=== PATIENT | male | born 1980 | race Caucasian/White ===

== ENCOUNTER 2023-07-21 01:49 | Inpatient (IN) | payer MEDICAID ==
[~2023-07-21] VITALS: Ht 177.8 cm; Wt 68.0 kg
[2023-07-21 01:55] VITALS: BP 108/73; PULSE 103; RESP 18; TEMP 98.5; O2SAT 98
[2023-07-21] MEDS ORDERED: VANCOMYCIN 1,000 MG in DEXTROSE 5% 250 ML IV ONE (02:50)
[2023-07-21] MEDS ORDERED: ONDANSETRON 4 MG/2 ML VIAL IVP ONE (02:50)
[2023-07-21] MEDS ORDERED: MORPHINE SULFATE 4 MG/ML SYR IVP ONE (02:50)
[2023-07-21] MEDS ORDERED: VANCOMYCIN 1,000 MG VIAL ONE (03:29)
[2023-07-21 03:43] LABS: BASOPHILS % (AUTO) 0.4 % (0.0-2.0); EOSINOPHILS % (AUTO) 0.3 % (0.0-4.0); HEMATOCRIT 36.3 % (36-52); HEMOGLOBIN 12.2 g/dL (12.0-18.0); LYMPHOCYTES # (AUTO) 1.7 K/uL (2.0-11.5); LYMPHOCYTES % (AUTO) 13.2 % (20.5-51.1); MEAN CORPUSCULAR HEMOGLOBIN 30 pg (27-31); MEAN CORPUSCULAR HGB CONC 34 g/dL (33-37); MEAN CORPUSCULAR VOLUME 88.4 fL (80-94); MONOCYTES # (AUTO) 1.3 K/uL (0.8-1.0); MONOCYTES % (AUTO) 10.2 % (1.7-9.3); NEUTROPHILS # (AUTO) 9.9 K/uL (1.8-7.7); NEUTROPHILS % (AUTO) 75.9 % (42.2-75.2); PLATELET COUNT (AUTO) 297 K/uL (140-450); RED BLOOD CELL COUNT(AUTO) 4.11 MIL/uL (4.20-6.10); RED CELL DISTRIBUTION WIDTH 13.6 % (11.6-13.7)
[2023-07-21 04:03] LABS: CALCIUM 8.5 mg/dL (8.5-10.1); CARBON DIOXIDE 27.4 mmol/L (21-32); POTASSIUM 3.4 mmol/L (3.5-5.1)
[2023-07-21 04:05] LABS: INR 1.09 (0.8-1.2); PARTIAL THROMBOPLASTIN TIME 30.1 secs (22-35.6); PROTHROMBIN TIME 11.4 secs (10.8-13.4)
[2023-07-21 04:09] LABS: ALBUMIN 3.2 g/dL (3.4-5.0); TOTAL BILIRUBIN 1.2 mg/dL (0.0-1.0); TOTAL PROTEIN, SERUM 7.1 g/dL (6.4-8.2)
[2023-07-21] MEDS ORDERED: POTASSIUM CHLORIDE 10 MEQ TABER PO PRN (05:40)
[2023-07-21] MEDS ORDERED: ONDANSETRON 4 MG/2 ML VIAL IM/IVP PRN (05:40)
[2023-07-21] MEDS ORDERED: ACETAMINOPHEN 325 MG TAB PO PRN (05:40)
[2023-07-21] MEDS ORDERED: ZOLPIDEM 5 MG TAB PO PRN (05:40)
[2023-07-21] MEDS ORDERED: guaiFENesin DM 200/20 MG-10 ML 10 ML UDC PO PRN (05:40)
[2023-07-21] MEDS: NACL 0.9% 1,000 ML IV SCH ×2 (05:40→17:30)
[2023-07-21] MEDS ORDERED: DOCUSATE SODIUM 100 MG GELCAP PO PRN (05:40)
[2023-07-21] MEDS ORDERED: PIPERACILLIN/TAZOBACTAM 3.375 GM VIAL IV ONE ×2 (08:55→12:21)
[2023-07-21] MEDS: PIPERACILLIN/TAZOBACTAM 3.375 GM in DEXTROSE 5% 50 ML IV SCH ×4 (08:57→23:55)
[2023-07-21] MEDS: PANTOPRAZOLE 40 MG TABEC PO SCH (08:57)
[2023-07-21 13:30] VITALS: RESP 16; O2SAT 98
[2023-07-21 16:00] VITALS: BP 111/71; PULSE 101; RESP 20; TEMP 98.5; O2SAT 100
[2023-07-21] MEDS: HYDROcodone/APAP 7.5/325 MG 1 TAB PO PRN (17:39)
[2023-07-21 20:00] VITALS: BP 110/70; PULSE 97; RESP 17; TEMP 98.4; O2SAT 98
[2023-07-22] MEDS: NACL 0.9% 1,000 ML IV SCH ×4 (00:12→22:43)
[2023-07-22 04:00] VITALS: BP 136/79; PULSE 92; RESP 18; TEMP 98; O2SAT 98
[2023-07-22] MEDS: PIPERACILLIN/TAZOBACTAM 3.375 GM in DEXTROSE 5% 50 ML IV SCH ×4 (05:31→23:49)
[2023-07-22] MEDS: HYDROcodone/APAP 7.5/325 MG 1 TAB PO PRN ×2 (06:00→15:38)
[2023-07-22 07:26] LABS: BASOPHILS % (AUTO) 0.2 % (0.0-2.0); EOSINOPHILS # (AUTO) 0.1 K/uL (0-0.4); EOSINOPHILS % (AUTO) 0.8 % (0.0-4.0); HEMATOCRIT 38.6 % (36-52); HEMOGLOBIN 12.9 g/dL (12.0-18.0); LYMPHOCYTES # (AUTO) 1.9 K/uL (2.0-11.5); LYMPHOCYTES % (AUTO) 14.3 % (20.5-51.1); MEAN CORPUSCULAR HEMOGLOBIN 30 pg (27-31); MEAN CORPUSCULAR HGB CONC 33 g/dL (33-37); MEAN CORPUSCULAR VOLUME 89.6 fL (80-94); MONOCYTES # (AUTO) 0.9 K/uL (0.8-1.0); MONOCYTES % (AUTO) 7.1 % (1.7-9.3); NEUTROPHILS % (AUTO) 77.6 % (42.2-75.2); PLATELET COUNT (AUTO) 344 K/uL (140-450); RED BLOOD CELL COUNT(AUTO) 4.31 MIL/uL (4.20-6.10); RED CELL DISTRIBUTION WIDTH 13.5 % (11.6-13.7); WHITE BLOOD COUNT (AUTO) 12.9 K/uL (4.8-10.8)
[2023-07-22 08:00] VITALS: BP 108/68; PULSE 63; RESP 18; TEMP 97.6; O2SAT 97
[2023-07-22 08:09] LABS: ALBUMIN 2.9 g/dL (3.4-5.0); ANION GAP 12.6 (8-16); CALCIUM 8.7 mg/dL (8.5-10.1); CARBON DIOXIDE 24.4 mmol/L (21-32); CREATININE 0.9 mg/dL (0.6-1.3); TOTAL BILIRUBIN 0.7 mg/dL (0.0-1.0); TOTAL PROTEIN, SERUM 7.2 g/dL (6.4-8.2)
[2023-07-22 08:50] VITALS: RESP 18; O2SAT 99
[2023-07-22] MEDS: PANTOPRAZOLE 40 MG TABEC PO SCH (09:54)
[2023-07-22 16:00] VITALS: BP 103/65; PULSE 78; RESP 18; TEMP 99.7; O2SAT 97
[2023-07-22 20:00] VITALS: BP 98/48; PULSE 84; RESP 18; TEMP 97; O2SAT 98
[2023-07-23] MEDS: HYDROcodone/APAP 7.5/325 MG 1 TAB PO PRN ×2 (02:06→21:31)
[2023-07-23 04:00] VITALS: BP 122/74; PULSE 73; RESP 18; TEMP 97.3; O2SAT 97
[2023-07-23] MEDS: PIPERACILLIN/TAZOBACTAM 3.375 GM in DEXTROSE 5% 50 ML IV SCH ×3 (05:17→17:04)
[2023-07-23 06:43] LABS: BASOPHILS # (AUTO) 0.1 K/uL (0.00-0.22); BASOPHILS % (AUTO) 0.5 % (0.0-2.0); EOSINOPHILS # (AUTO) 0.2 K/uL (0-0.4); EOSINOPHILS % (AUTO) 1.7 % (0.0-4.0); HEMATOCRIT 39.9 % (36-52); HEMOGLOBIN 13.1 g/dL (12.0-18.0); LYMPHOCYTES # (AUTO) 1.8 K/uL (2.0-11.5); LYMPHOCYTES % (AUTO) 18.6 % (20.5-51.1); MEAN CORPUSCULAR HEMOGLOBIN 30 pg (27-31); MEAN CORPUSCULAR HGB CONC 33 g/dL (33-37); MEAN CORPUSCULAR VOLUME 89.9 fL (80-94); MONOCYTES # (AUTO) 0.6 K/uL (0.8-1.0); MONOCYTES % (AUTO) 6.8 % (1.7-9.3); NEUTROPHILS # (AUTO) 6.9 K/uL (1.8-7.7); NEUTROPHILS % (AUTO) 72.4 % (42.2-75.2); PLATELET COUNT (AUTO) 383 K/uL (140-450); RED BLOOD CELL COUNT(AUTO) 4.43 MIL/uL (4.20-6.10); RED CELL DISTRIBUTION WIDTH 13.5 % (11.6-13.7); WHITE BLOOD COUNT (AUTO) 9.5 K/uL (4.8-10.8)
[2023-07-23 06:52] LABS: ALBUMIN 2.7 g/dL (3.4-5.0); ANION GAP 11.9 (8-16); CARBON DIOXIDE 27.1 mmol/L (21-32); CREATININE 0.9 mg/dL (0.6-1.3); TOTAL BILIRUBIN 0.4 mg/dL (0.0-1.0); TOTAL PROTEIN, SERUM 7.2 g/dL (6.4-8.2)
[2023-07-23 08:36] VITALS: BP 122/84; PULSE 64; RESP 17; TEMP 98.4; O2SAT 100
[2023-07-23 08:49] VITALS: PULSE 64; RESP 17; O2SAT 100
[2023-07-23] MEDS: PANTOPRAZOLE 40 MG TABEC PO SCH (09:12)
[2023-07-23 10:07] VITALS: TEMP 98.1
[2023-07-23] MEDS: NACL 0.9% 1,000 ML IV SCH ×2 (10:33→19:41)
[2023-07-23 20:00] VITALS: BP 111/81; PULSE 71; RESP 18; TEMP 98; O2SAT 96
[2023-07-24] MEDS: PIPERACILLIN/TAZOBACTAM 3.375 GM in DEXTROSE 5% 50 ML IV SCH ×4 (00:40→17:02)
[2023-07-24 04:00] VITALS: BP 112/72; PULSE 63; RESP 19; TEMP 97.8; O2SAT 95
[2023-07-24] MEDS: NACL 0.9% 1,000 ML IV SCH (05:35)
[2023-07-24 06:58] LABS: BASOPHILS # (AUTO) 0.1 K/uL (0.00-0.22); BASOPHILS % (AUTO) 0.7 % (0.0-2.0); EOSINOPHILS # (AUTO) 0.3 K/uL (0-0.4); EOSINOPHILS % (AUTO) 3.4 % (0.0-4.0); HEMATOCRIT 39.2 % (36-52); HEMOGLOBIN 13.1 g/dL (12.0-18.0); LYMPHOCYTES # (AUTO) 1.8 K/uL (2.0-11.5); LYMPHOCYTES % (AUTO) 21.7 % (20.5-51.1); MEAN CORPUSCULAR HEMOGLOBIN 30 pg (27-31); MEAN CORPUSCULAR HGB CONC 33 g/dL (33-37); MEAN CORPUSCULAR VOLUME 88.7 fL (80-94); MONOCYTES # (AUTO) 0.5 K/uL (0.8-1.0); MONOCYTES % (AUTO) 6.6 % (1.7-9.3); NEUTROPHILS # (AUTO) 5.6 K/uL (1.8-7.7); NEUTROPHILS % (AUTO) 67.6 % (42.2-75.2); PLATELET COUNT (AUTO) 439 K/uL (140-450); RED BLOOD CELL COUNT(AUTO) 4.42 MIL/uL (4.20-6.10); RED CELL DISTRIBUTION WIDTH 13.6 % (11.6-13.7); WHITE BLOOD COUNT (AUTO) 8.3 K/uL (4.8-10.8)
[2023-07-24 07:15] LABS: ALBUMIN 2.7 g/dL (3.4-5.0); ANION GAP 13.9 (8-16); CALCIUM 8.9 mg/dL (8.5-10.1); CARBON DIOXIDE 26.3 mmol/L (21-32); POTASSIUM 4.2 mmol/L (3.5-5.1); TOTAL BILIRUBIN 0.3 mg/dL (0.0-1.0); TOTAL PROTEIN, SERUM 7.4 g/dL (6.4-8.2)
[2023-07-24 07:48] VITALS: TEMP 97.8
[2023-07-24] MEDS: PANTOPRAZOLE 40 MG TABEC PO SCH (08:10)
[2023-07-24 08:39] VITALS: PULSE 64; RESP 20; O2SAT 98
[2023-07-24 08:40] VITALS: BP 134/83; PULSE 64; RESP 20; TEMP 98.3; O2SAT 98
[2023-07-24] MEDS ORDERED: VANCOMYCIN PER PHARMACY MC PRN (12:05)
[2023-07-24] MEDS: VANCOMYCIN 1,000 MG in DEXTROSE 5% 250 ML IV SCH (12:54)
[2023-07-24 16:29] VITALS: BP 111/71; PULSE 70; RESP 18; TEMP 98.4; O2SAT 98
[2023-07-24 20:00] VITALS: BP 110/76; PULSE 77; RESP 18; TEMP 98; O2SAT 99
[2023-07-24] MEDS: CHLORHEXADINE GLUC 2% CLOTH TP SCH (22:20)
[2023-07-24] MEDS: MUPIROCIN CA NASAL 2% 1GM TUBE NS SCH (23:53)
[2023-07-25] MEDS: VANCOMYCIN 1,000 MG in DEXTROSE 5% 250 ML IV SCH ×2 (00:18→12:40)
[2023-07-25 04:00] VITALS: BP 110/70; PULSE 68; RESP 18; TEMP 97.8; O2SAT 95
[2023-07-25] MEDS ORDERED: LIDOCAINE MPF 1% 5 ML ONE (05:46)
[2023-07-25] MEDS ORDERED: LIDOCAINE 1% 500 MG/ 50 ML VIAL INJ ONE (05:50)
[2023-07-25 06:59] LABS: BASOPHILS # (AUTO) 0.1 K/uL (0.00-0.22); BASOPHILS % (AUTO) 0.8 % (0.0-2.0); EOSINOPHILS # (AUTO) 0.3 K/uL (0-0.4); EOSINOPHILS % (AUTO) 4.2 % (0.0-4.0); HEMATOCRIT 39.8 % (36-52); HEMOGLOBIN 13.3 g/dL (12.0-18.0); LYMPHOCYTES # (AUTO) 1.4 K/uL (2.0-11.5); LYMPHOCYTES % (AUTO) 21.4 % (20.5-51.1); MEAN CORPUSCULAR HEMOGLOBIN 30 pg (27-31); MEAN CORPUSCULAR HGB CONC 34 g/dL (33-37); MEAN CORPUSCULAR VOLUME 88.6 fL (80-94); MONOCYTES # (AUTO) 0.4 K/uL (0.8-1.0); MONOCYTES % (AUTO) 5.8 % (1.7-9.3); NEUTROPHILS # (AUTO) 4.6 K/uL (1.8-7.7); NEUTROPHILS % (AUTO) 67.8 % (42.2-75.2); PLATELET COUNT (AUTO) 476 K/uL (140-450); RED BLOOD CELL COUNT(AUTO) 4.49 MIL/uL (4.20-6.10); RED CELL DISTRIBUTION WIDTH 13.3 % (11.6-13.7); WHITE BLOOD COUNT (AUTO) 6.7 K/uL (4.8-10.8)
[2023-07-25 07:13] LABS: ANION GAP 12.2 (8-16); CALCIUM 9.1 mg/dL (8.5-10.1); CARBON DIOXIDE 26.7 mmol/L (21-32); POTASSIUM 3.9 mmol/L (3.5-5.1)
[2023-07-25 08:00] VITALS: BP 143/70; PULSE 60; RESP 20; TEMP 97.6; O2SAT 97; O2SAT 99
[2023-07-25] MEDS: PANTOPRAZOLE 40 MG TABEC PO SCH (08:49)
[2023-07-25 16:00] VITALS: BP 110/77; PULSE 83; RESP 20; TEMP 97.8; O2SAT 98
[2023-07-25 20:00] VITALS: BP 107/70; PULSE 74; RESP 18; RESP 20; TEMP 97.5; TEMP 97.6; O2SAT 98; O2SAT 99
[2023-07-25] MEDS: VANCOMYCIN HCL 750 MG in DEXTROSE 5% 250 ML IV SCH (21:18)
[2023-07-25] MEDS: CHLORHEXADINE GLUC 2% CLOTH TP SCH (22:20)
[2023-07-25] MEDS: MUPIROCIN CA NASAL 2% 1GM TUBE NS SCH (23:59)
[2023-07-26 04:00] VITALS: BP 116/76; PULSE 68; RESP 18; TEMP 98.6; O2SAT 99
[2023-07-26] MEDS: VANCOMYCIN HCL 750 MG in DEXTROSE 5% 250 ML IV SCH ×3 (05:31→20:13)
[2023-07-26 06:43] LABS: ANION GAP 12.8 (8-16); CALCIUM 8.9 mg/dL (8.5-10.1); CREATININE 0.9 mg/dL (0.6-1.3); POTASSIUM 3.8 mmol/L (3.5-5.1)
[2023-07-26 06:44] LABS: BASOPHILS # (AUTO) 0.1 K/uL (0.00-0.22); BASOPHILS % (AUTO) 0.9 % (0.0-2.0); EOSINOPHILS # (AUTO) 0.3 K/uL (0-0.4); EOSINOPHILS % (AUTO) 4.7 % (0.0-4.0); HEMATOCRIT 40.9 % (36-52); HEMOGLOBIN 13.8 g/dL (12.0-18.0); LYMPHOCYTES # (AUTO) 1.8 K/uL (2.0-11.5); LYMPHOCYTES % (AUTO) 26.3 % (20.5-51.1); MEAN CORPUSCULAR HEMOGLOBIN 30 pg (27-31); MEAN CORPUSCULAR HGB CONC 34 g/dL (33-37); MEAN CORPUSCULAR VOLUME 88.5 fL (80-94); MONOCYTES # (AUTO) 0.5 K/uL (0.8-1.0); MONOCYTES % (AUTO) 6.8 % (1.7-9.3); NEUTROPHILS # (AUTO) 4.3 K/uL (1.8-7.7); NEUTROPHILS % (AUTO) 61.3 % (42.2-75.2); PLATELET COUNT (AUTO) 517 K/uL (140-450); RED BLOOD CELL COUNT(AUTO) 4.63 MIL/uL (4.20-6.10); RED CELL DISTRIBUTION WIDTH 13.5 % (11.6-13.7)
[2023-07-26 08:00] VITALS: BP 110/69; PULSE 71; RESP 18; TEMP 97.2; TEMP 97.6; O2SAT 100; O2SAT 99
[2023-07-26] MEDS: PANTOPRAZOLE 40 MG TABEC PO SCH (08:34)
[2023-07-26 16:00] VITALS: BP 111/77; PULSE 66; RESP 18; TEMP 97.1; O2SAT 99
[2023-07-26] MEDS ORDERED: GENTAMICIN PER PHARMACY MC PRN (18:25)
[2023-07-26 20:00] VITALS: BP 115/77; PULSE 73; RESP 18; TEMP 98.1; O2SAT 96
[2023-07-26] MEDS: HYDROcodone/APAP 7.5/325 MG 1 TAB PO PRN (20:14)
[2023-07-26] MEDS: GENTAMICIN 80 MG in DEXTROSE 5% 100 ML IV SCH (21:54)
[2023-07-26] MEDS: CHLORHEXADINE GLUC 2% CLOTH TP SCH (23:15)
[2023-07-26] MEDS: MUPIROCIN CA NASAL 2% 1GM TUBE NS SCH (23:15)
[2023-07-27 04:00] VITALS: BP 95/63; PULSE 71; RESP 16; TEMP 97.7; O2SAT 97
[2023-07-27] MEDS: VANCOMYCIN HCL 750 MG in DEXTROSE 5% 250 ML IV SCH (04:01)
[2023-07-27] MEDS: GENTAMICIN 80 MG in DEXTROSE 5% 100 ML IV SCH (05:22)
[2023-07-27 06:47] LABS: ANION GAP 10.4 (8-16); CALCIUM 8.6 mg/dL (8.5-10.1); CARBON DIOXIDE 28.6 mmol/L (21-32)
[2023-07-27 06:49] LABS: BASOPHILS # (AUTO) 0.1 K/uL (0.00-0.22); BASOPHILS % (AUTO) 0.8 % (0.0-2.0); EOSINOPHILS # (AUTO) 0.4 K/uL (0-0.4); EOSINOPHILS % (AUTO) 4.5 % (0.0-4.0); HEMOGLOBIN 13.5 g/dL (12.0-18.0); LYMPHOCYTES # (AUTO) 2.1 K/uL (2.0-11.5); LYMPHOCYTES % (AUTO) 25.3 % (20.5-51.1); MEAN CORPUSCULAR HEMOGLOBIN 29 pg (27-31); MEAN CORPUSCULAR HGB CONC 33 g/dL (33-37); MEAN CORPUSCULAR VOLUME 89.3 fL (80-94); MONOCYTES # (AUTO) 0.5 K/uL (0.8-1.0); MONOCYTES % (AUTO) 6.4 % (1.7-9.3); NEUTROPHILS # (AUTO) 5.2 K/uL (1.8-7.7); PLATELET COUNT (AUTO) 539 K/uL (140-450); RED BLOOD CELL COUNT(AUTO) 4.59 MIL/uL (4.20-6.10); RED CELL DISTRIBUTION WIDTH 13.4 % (11.6-13.7); WHITE BLOOD COUNT (AUTO) 8.3 K/uL (4.8-10.8)
[2023-07-27 08:00] VITALS: PULSE 112; RESP 18; TEMP 97.1; O2SAT 96
[2023-07-27] MEDS ORDERED: AMOX-999 PO (08:48)
[2023-07-27] MEDS: PANTOPRAZOLE 40 MG TABEC PO SCH (09:58)
[2023-07-27 11:18] VITALS: BP 108/76; PULSE 96; RESP 18; TEMP 97.1
== END 2023-07-27 12:20 | disposition home or self-care (01) | DRG 710 ==
LOC: MED 01:49 → MMU 05:43 → MTU 13:09
PROVIDERS: ADMIT Student in an Organized Health Care Education/Training Program; ATTEND Student in an Organized Health Care Education/Training Program
PROC: 0PBT0ZZ Excision of Right Finger Phalanx, Open Approach (ICD-10-PCS; principal; 2023-07-25)
DX: A41.9 Sepsis, unspecified organism (principal); E44.1 Mild protein-calorie malnutrition; E87.1 Hypo-osmolality and hyponatremia; F15.10 Other stimulant abuse, uncomplicated; L03.113 Cellulitis of right upper limb; L03.011 Cellulitis of right finger; Z22.322 Carrier or suspected carrier of Methicillin resistant Staphylococcus aureus; Z68.21 Body mass index [BMI] 21.0-21.9, adult
CPT/HCPCS: 36415; 73130; 73200; 80048; 80053; 80202; 82948; 83605; 85025; 85610; 85651; 85730; 86140; 86886; 86900; 86901; 87040; 87070; 87075; 87081; 87186; 87205; 96365; 96366; 96375; 99285; J1580; J2001; J2270; J2405; J2543; J3370; J7060